=== PATIENT | female | born 1970 | race African-American/Black ===

== ENCOUNTER 2020-12-02 02:09 | Inpatient (IN) | payer MEDICARE, OTHER ==
[~2020-12-02] VITALS: Ht 160 cm; Wt 39.5 kg
--- NOTE | 2020-12-02 02:16 | NUR ---
PT AAOX4. BIBRA FROM HER HOME. 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 PT PLACED IN BED 11 ON MONITOR AND PULSE OX. ER MD AT BEDSIDE FOR EVAL. AWAITING ORDERS.
[2020-12-02] MEDS ORDERED: ONDANSETRON HCL/PF 4 MG/2 ML VIAL ONE (02:22)
[2020-12-02] MEDS ORDERED: MORPHINE SULFATE INJ 4 MG/ML DISP.SYRIN ONE (02:22)
[2020-12-02] MEDS ORDERED: MORPHINE SULFATE INJ 2 MG/ML DISP.SYRIN IV ONE (02:30)
[2020-12-02] MEDS ORDERED: ONDANSETRON HCL/PF 4 MG/2 ML VIAL IVP ONE (02:30)
[2020-12-02 02:46] LABS: BASOPHILS % (AUTO) 0.5 % (0.0-2.0); EOSINOPHILS % (AUTO) 0.1 % (0.0-6.0); HEMATOCRIT 39 % (33-45); HEMOGLOBIN 13.1 g/dL (11.5-14.8); LYMPHOCYTES # (AUTO) 1.2 /CMM (0.8-4.8); LYMPHOCYTES % (AUTO) 12.4 % (20.0-44.0); MEAN CORPUSCULAR HGB CONC 33 g/dl (31.0-36.0); MEAN CORPUSCULAR VOLUME 91 fL (82-100); MONOCYTES # (AUTO) 0.3 /CMM (0.1-1.30); MONOCYTES % (AUTO) 3.7 % (2.0-12.0); NEUTROPHILS # (AUTO) 7.8 /CMM (1.8-8.9); NEUTROPHILS % (AUTO) 83.3 % (43.0-81.0); PLATELET COUNT (AUTO) 193 /CMM (150-450); RED BLOOD CELL COUNT(AUTO) 4.34 MIL/uL (4.0-5.2); WHITE BLOOD COUNT (AUTO) 9.4 K/uL (4.3-11.0)
--- NOTE | 2020-12-02 02:54 | NUR ---
BROUGHT TO CT
[2020-12-02 03:48] LABS: BILIRUBIN,DIRECT 0.1 mg/dL (0.0-0.2); BILIRUBIN,TOTAL 0.4 mg/dL (0.2-1.0); CALCIUM, SERUM 9.1 mg/dL (8.5-10.1)
--- NOTE | 2020-12-02 03:49 | NUR ---
CR 7.5 ER AWARE
[2020-12-02 03:50] LABS: POTASSIUM 5.2 mmol/L (3.5-5.1)
[2020-12-02 03:51] LABS: CREATININE 7.5 mg/dL (0.6-1.3)
[2020-12-02] MEDS ORDERED: HYDROMORPHONE 1 MG/1 ML DISP.SYRIN IV ONE (04:00)
[2020-12-02] MEDS ORDERED: HYDROMORPHONE 1 MG/1 ML DISP.SYRIN ONE (04:08)
--- NOTE | 2020-12-02 04:40 | NUR ---
TAWANDAID SWABBED,SENT TO LAB.
--- NOTE | 2020-12-02 04:40 | NUR ---
PT DENIES PAIN. VITALS STABLE.
[2020-12-02] MEDS ORDERED: ONDANSETRON HCL/PF 4 MG/2 ML VIAL IVP PRN (06:00)
[2020-12-02] MEDS ORDERED: MAGNESIUM HYDROXIDE 30 ML UDC PO PRN (06:00)
[2020-12-02] MEDS ORDERED: HYDROMORPHONE 1 MG/1 ML DISP.SYRIN IV PRN (06:00)
[2020-12-02] MEDS ORDERED: Z GUARD REMEDY 2 OZ OINT TP PRN (06:00)
[2020-12-02] MEDS ORDERED: ACETAMINOPHEN 325 MG TABLET PO PRN (06:00)
[2020-12-02] MEDS ORDERED: ZOLPIDEM TARTRATE 5 MG TABLET PO PRN (06:00)
--- NOTE | 2020-12-02 06:51 | NUR ---
MS 320-2
--- NOTE | 2020-12-02 07:20 | NUR ---
REPORT GIVEN TO KEILA PEÑA FOR [facility]
[2020-12-02 08:00] VITALS: BP 123/78
--- NOTE | 2020-12-02 08:02 | NUR ---
MS RN ADMITTING NOTES ADMITTED PATIENT TO UNIT VIA GURNEY AT 0730 ACCOMPANIED BY Verónica GRAYSON. PT IS A/0 X4. ABLE TO MAKE NEEDS KNOWN, VERBALIZED THAT ABDOMINAL PAIN IS TOLERABLE AT THIS TIME. ORIENTED TO STAFF AND UNIT. PT ON SUPPLEMENTAL 02 VIA N/C AT 2LPM, TOLERATING WELL, BREATHING EVEN AND UNLABORED. PT WITH AV FISTULA ON KATI WITH + BRUIT/SHRILL NOTED. IV ACCESS PRESENT ON LIBRADO G#20 INTACT, PATENT AND FLUSHES WELL. SKIN IS INTACT, LUNGS CLEAR ON AUSCULTATION. ABDOMEN SOFT, NON-DISTENDED WITH POSITIVE BOWEL SOUNDS ON FOUR QUADRANTS. SAFETY MEASURES INITIATED: BED PLACED IN LOWEST LOCKED POSITION, B/L UPPER SR UP AND CALL LIGHT WITHIN EASY REACH OF PT. WILL CONTINUE TO MONITOR PT ACCORDINGLY.
[2020-12-02] MEDS ORDERED: AMLO-213 PO (08:47)
[2020-12-02] MEDS ORDERED: FOLI0.8C PO (08:47)
[2020-12-02] MEDS ORDERED: CYPR4TAB44 PO (08:47)
[2020-12-02] MEDS ORDERED: CALC667C6 PO (08:47)
--- NOTE | 2020-12-02 14:00 | NUR ---
RN NOTES PT C/O PAIN ON HER LEFT SIDE OF BACK, 9/10 SCALE. PRN DILAUDID 1MG/ML IVP ADMINISTERED AT 1357. WILL CONTINUE TO MONITOR AND REASSESS PT.
[2020-12-02 16:00] VITALS: BP 146/91
--- NOTE | 2020-12-02 18:23 | NUR ---
MS RN NOTE PT SEEN BY AND EVALUATED BY DR. GARZA WITH ORDER TO CHANGE DIET FROM CLEAR LIQUIDS TO RENAL STANDARD, REGULAR CONSISTENCY. WILL CARRY OUT ORDER.
[2020-12-02] MEDS: AMLODIPINE BESYLATE 10 MG TABLET PO SCH (18:26)
[2020-12-02] MEDS ORDERED: CYPROHEPTADINE HCL 4 MG TABLET PO SCH (18:30)
[2020-12-02] MEDS: HYDROCODONE/APAP 5/325MG TABLET PO PRN (18:34)
--- NOTE | 2020-12-02 18:38 | NUR ---
RN NOTES RECEIVED CALL FROM STARLA BYRNE TO ASKED PT IF SHE BROUGHT HER HOME MEDICATION PERIACTIN. PT STATED THAT SHE DIDN'T BRING IT AND IT'S OK IF SHE WILL NOT TAKE IT WHILE IN THE HOSPITAL. PHARMACIST CATY CALLED AND INFORMED. WILL CONTINUE TO MONITOR.
--- NOTE | 2020-12-02 18:43 | NUR ---
MS RN CLOSING PT IN BED TALKING TO SOMEONE ON HER CELLPHONE. A/0 X4. ABLE TO VERBALIZED NEEDS. ON ROOM AIR, TOLERATING WELL, BREATHING EVEN AND UNLABORED. AV FISTULA ON KATI WITH + BRUIT/SHRILL NOTED. IV SL ON LIBRADO G#20 INTACT, PATENT AND FLUSHES WELL. ALL NEEDS AND CARE ATTENDED WELL. SAFETY MEASURES KEPT IN PLACE: BED IN LOWEST LOCKED POSITION, B/L UPPER SR UP AND CALL LIGHT WITHIN EASY REACH OF PT. WILL ENDORSED TO CUSTOMER BUSINESS MANAGER NURSE FOR [facility].
--- NOTE | 2020-12-02 19:30 | NUR ---
MS BRANDIN initial notes Received pt in bed awake and alert on her cellphone at this time talking to someone. Denies any pain or any discomfort at this time. No signs of any distress noted. kept her warm and comfortable at all times. Encourage her to use the call light if she needs the nurse or needs some helped. place call light at reach.
[2020-12-02 20:00] VITALS: BP 151/85
--- NOTE | 2020-12-03 | NUR ---
MS BRANDIN NOTES PT CHECKED AND SEEN IN HER BED WITH LIGHTS ON SLEEPING COMFORTABLY IN BED WITHOUT ANY DISTRESS NOTED, KEPT HER WARM AND COMFORTABLE AT ALL TIMES. PLACE CALL LIGHT AT REACH.
[2020-12-03 04:00] VITALS: BP 123/61
[2020-12-03] MEDS: HYDROCODONE/APAP 5/325MG TABLET PO PRN ×4 (04:27→22:33)
--- NOTE | 2020-12-03 04:28 | NUR ---
ms robbie notes c/o lower back pain ,03/03 , norco tablet given as ordered. will continue monitoring.
--- NOTE | 2020-12-03 05:37 | NUR ---
ms robbie notes pt woke up when computer lab para professional try to do blood draw. pt refused to have her blood draw done even we explained to her why we need it. she states that she's tired of poking her to do blood draw and she request to have her blood draw to be do when dialysis nurse come today and withdraw it from my AV fistula.
--- NOTE | 2020-12-03 06:53 | NUR ---
mslvn closing notes pt resting at this time without any distress noted. pain subside from the pain medication given . stable throughout the night and slept well. kept her warm and comfortable at all times. bed in low and lock in position with side rails x2 up and place call light at reach. will endorse to am nurse for continuity of care.
--- NOTE | 2020-12-03 07:39 | NUR ---
MS RN OPENING NOTE PT RECEIVED IN BED, RESTING COMFORTABLY WITH NO C/O PAIN AT THIS TIME. PT IS A/O X 4, VERBAL AND ABLE TO MAKE NEEDS KNOWN. PT IS ON ROOM AIR WITH NO S/SX OF RESPIRATORY DISTRESS OR SOB NOTED. PT IS AMBULATORY WITH STEADY GAIT. PT HAS AN IV ACCESS IN THE RIGHT UPPER ARM G#20, PATENT, INTACT AND FLUSHING WELL WITH NO S/SX OF INFECTION, INFLAMMATION OR INFILTRATION. PT HAS A LEFT UPPER ARM AV FISTULA, POSITIVE FOR BRUIT AND THRILL. SAFETY MEASURES IN PLACE: BED IN LOWEST POSITION AND LOCKED WITH BOTH UPPER SIDE RAILS UP X 2. CALL LIGHT PLACED WITHIN REACH. WILL CONTINUE TO MONITOR.
[2020-12-03 08:28] VITALS: BP 123/88
[2020-12-03] MEDS: AMLODIPINE BESYLATE 10 MG TABLET PO SCH (08:35)
[2020-12-03] MEDS ORDERED: FOLIC ACID 1 MG TABLET PO SCH (09:00)
--- NOTE | 2020-12-03 09:54 | NUR ---
MS RN NOTE PT C/O SHARP PAIN IN LOWER ABDOMEN RATED 7/10. ADMINISTERED NORCO 5-325 1 TAB PO Q4H PRN FOR PAIN PER PT'S REQUEST. WILL CONTINUE TO MONITOR.
[2020-12-03 15:49] VITALS: BP 119/71
--- NOTE | 2020-12-03 18:46 | NUR ---
MS RN CLOSING NOTE PT REMAINS IN BED, RESTING COMFORTABLY WITH NO C/O PAIN AT THIS TIME. PT IS A/O X 4, VERBAL AND ABLE TO MAKE NEEDS KNOWN. PT IS ON ROOM AIR WITH NO S/SX OF RESPIRATORY DISTRESS OR SOB NOTED. PT IS AMBULATORY WITH STEADY GAIT. PT HAS AN IV ACCESS IN THE RIGHT UPPER ARM G#20, PATENT, INTACT AND FLUSHING WELL WITH NO S/SX OF INFECTION, INFLAMMATION OR INFILTRATION. PT HAS A LEFT UPPER ARM AV FISTULA, POSITIVE FOR BRUIT AND THRILL. PT CURRENTLY UNDERGOING HEMODIALYSIS VIA LEFT UPPER ARM AV FISTULA, TOLERATING WELL. SAFETY MEASURES MAINTAINED: BED IN LOWEST, LOCKED POSITION WITH BOTH UPPER SIDE RAILS UP X 2. CALL LIGHT PLACED WITHIN REACH. PT CLEARED TO BE DISCHARGED TONIGHT AFTER DIALYSIS. PT AND CHARGE NURSE AWARE. WILL ENDORSE TO MEDIA PRODUCTION MANAGER NURSE.
[2020-12-03] MEDS ORDERED: CALCIUM ACETATE 667 MG TABLET PO SCH (19:00)
--- NOTE | 2020-12-03 19:30 | NUR ---
MS/RN OPENING NOTES RECEIVED PATINE IN BED ALERT AND ORIENTED X 4. PATIENT IS CURRENT RECEIVING HD. PATIENT BREATHING IS EVEN AND UNLABORED. NO SIGNS OF SOB OR RESPIRATORY DISTRESS NOTED. PATIENT STATES NO PAIN AT THIS TIME. SAFETY MEASURES ARE IN PLACE, BED IS LOCKED AND PLACED IN THE LOW POSITION, SIDE RAILS UP X 2, CALL LIGHT IS WITHIN REACH. PATIENT FOR DC S/P HD. WILL CONTINUE TO MONITOR THROUGH OUT SHIFT.
[2020-12-03 20:00] VITALS: BP 144/79
--- NOTE | 2020-12-03 20:30 | NUR ---
MS/RN NOTES PATIENT S/P HD 500 ML OUT. PATIENT VITAL SIGNS ARE WITHIN NORMAL LIMITS. PATIENT STATES BACK ACHE, STATED SHE WOULD NOT LIKE TYLENOL AT THIS TIME. PATIENT WAITING FOR [employer] [facility] TO TRANSPORT HOME.
--- NOTE | 2020-12-03 21:00 | NUR ---
MS/RN NOTES RECEIVED CALL FROM [employer], NO TRANSPORT AIDE AVAILABLE IN THE AREA, WILL CALL BACK ONCE TRANSPORT AIDE IS AVAILABLE.
--- NOTE | 2020-12-03 22:40 | NUR ---
MS/RN NOTES PATIENT STATED BACK PAIN. PATIENT GIVEN NORCO 5 PO. V/S ARE STABLE. WILL CONTINUE TO MONITOR.
--- NOTE | 2020-12-04 06:45 | NUR ---
MS/RN CLOSING NOTES PATIENT IN BED SLEEPING EASY TO AROUSE. PATIENT IS ALERT AND ORIENTED X 4. PATIENT BREATHING IS EVEN AND UNLABORED. NO SIGNS OF SOB OR RESPIRATORY DISTRESS NOTED. PATIENT TAXI UNABLE TO ARRIVE DURING SHIFT, PATIENT NOT ABLE TO GO HOME. ALL NEEDS HAVE BEEN MET DURING SHIFT. SAFETY MEASURES ARE IN PLACE, BED IS LOCKED AND PLACED IN THE LOW POSITION, SIDE RAILS UP X 2, CALL LIGHT IS WITHIN REACH. WILL ENDORSE CARE TO DAY SHIFT NURSE.
--- NOTE | 2020-12-04 08:10 | NUR ---
MS RN NOTES PATIENT IS DISCHARGED. AMBULATORY. ACCOMPANIED DOWNSTAIRS. PICKED UP BY [facility]. PT IS STABLE VS 129/75 LA 82 RR 16 T 98.7 DISCHARGE INSTRUCTIONS AND HEALTH TEACHINGS WERE GIVEN. VERBALIZED UNDERSTANDING. IV AND WRISTBAND WERE REMOVED.
== END 2020-12-04 08:10 | disposition home or self-care (01) | DRG 391 ==
LOC: ER 02:12 → MED 07:08
PROVIDERS: ADMIT Nurse Practitioner Acute Care; ATTEND Nurse Practitioner Acute Care
PROC: 5A1D70Z Performance of Urinary Filtration, Intermittent, Less than 6 Hours Per Day (ICD-10-PCS; principal; 2020-12-03)
DX: K29.70 Gastritis, unspecified, without bleeding (principal); N18.6 End stage renal disease; E43 Unspecified severe protein-calorie malnutrition; Q44.6 Cystic disease of liver; Q61.3 Polycystic kidney, unspecified; K86.2 Cyst of pancreas; R64 Cachexia; Z68.1 Body mass index [BMI] 19.9 or less, adult; E87.5 Hyperkalemia; K76.89 Other specified diseases of liver; Z99.2 Dependence on renal dialysis; Z20.822 Contact with and (suspected) exposure to COVID-19; F12.90 Cannabis use, unspecified, uncomplicated; Z72.0 Tobacco use; Z79.899 Other long term (current) drug therapy
CPT/HCPCS: 36415; 71045-TC; 76705-TC; 80048-TC; 80076-TC; 82962-TC; 83605-TC; 83690-TC; 85025-TC; 87081-TC; 90935-TC; C9803; G0378; J1170; J2270; J2405

== ENCOUNTER 2021-12-20 04:45 | Emergency (ER) | payer MEDICARE, OTHER ==
[~2021-12-20] VITALS: Ht 157.5 cm; Wt 56.7 kg
[~2021-12-20 04:45] MED LIST: AMLO-213 PO; CALC667C6 PO; CYPR4TAB44 PO; FOLI0.8C PO
--- NOTE | 2021-12-20 05:05 | NUR ---
BIBRA C/O SOB AND COUGH X THIS AM. PT ARRIVED ON NC 4LPM BREATHING EVEN AND UNLABORED. PT CHANGED INTO A GOWN AND PLACED ON MINITOR AND PULSE OX AND V/S STABLE.
--- NOTE | 2021-12-20 05:24 | NUR ---
20G IV LINE ESTABLISHED AT [facility]. BLOOD RAWN AND SENT TO LAB.
--- NOTE | 2021-12-20 05:26 | NUR ---
XRAY AT BEDSIDE
[2021-12-20 05:31] LABS: BASOPHILS # (AUTO) 0.1 K/uL (0.0-0.2); BASOPHILS % (AUTO) 0.7 % (0.0-2.0); HEMATOCRIT 31 % (33-45); HEMOGLOBIN 10.5 g/dL (11.5-14.8); LYMPHOCYTES # (AUTO) 1.5 K/uL (0.8-4.8); LYMPHOCYTES % (AUTO) 17.2 % (20.0-44.0); MEAN CORPUSCULAR HGB CONC 34 g/dl (31.0-36.0); MEAN CORPUSCULAR VOLUME 90 fL (82-100); MONOCYTES # (AUTO) 0.4 K/uL (0.1-1.30); MONOCYTES % (AUTO) 5.2 % (2.0-12.0); NEUTROPHILS # (AUTO) 6.5 K/uL (1.8-8.9); NEUTROPHILS % (AUTO) 75.9 % (43.0-81.0); PLATELET COUNT (AUTO) 185 K/uL (150-450); RED BLOOD CELL COUNT(AUTO) 3.46 MIL/uL (4.0-5.2); WHITE BLOOD COUNT (AUTO) 8.6 K/uL (4.3-11.0)
--- NOTE | 2021-12-20 06:18 | NUR ---
DR ALICEA AT BED SIDE
--- NOTE | 2021-12-20 06:52 | NUR ---
COVID SWAB COLLECTED AND SENT TO LAB
[2021-12-20 07:08] LABS: CARBON DIOXIDE 31 mmol/L (21-32); CHLORIDE 103 mmol/L (98-107); POTASSIUM 4.3 mmol/L (3.5-5.1); SODIUM SERUM 141 mmol/L (136-145); UREA NITROGEN, BLOOD 53 mg/dL (7-18)
[2021-12-20 07:26] LABS: GLUCOSE 93 mg/dL (74-106)
[2021-12-20] MEDS ORDERED: FUROSEMIDE 40 MG/4 ML VIAL IV ONE ×2 (10:00→21:00)
[2021-12-20] MEDS ORDERED: FUROSEMIDE 40 MG/4 ML VIAL ONE (10:01)
[2021-12-20] MEDS ORDERED: MORPHINE SULFATE INJ 2 MG/ML DISP.SYRIN ONE (10:36)
[2021-12-20] MEDS ORDERED: MORPHINE SULFATE INJ 2 MG/ML DISP.SYRIN IV ONE (11:00)
[2021-12-20] MEDS ORDERED: Z GUARD REMEDY 4 OZ OINT TP PRN (12:30)
[2021-12-20] MEDS ORDERED: ZOLPIDEM TARTRATE 5 MG TABLET PO PRN (12:30)
[2021-12-20] MEDS ORDERED: HYDROCODONE/APAP 5/325MG TABLET PO PRN (12:30)
[2021-12-20] MEDS ORDERED: ONDANSETRON HCL/PF 4 MG/2 ML VIAL IVP PRN (12:30)
[2021-12-20] MEDS ORDERED: ACETAMINOPHEN 325 MG TABLET PO PRN (12:30)
--- NOTE | 2021-12-20 12:44 | NUR ---
PT GOING TO [facility] NUMBER FOR REPORT [phone] ROOM NUMBER [id number] NURSE VIVIANA FAUST TRANSPORT WITH [facility]
--- NOTE | 2021-12-20 12:54 | NUR ---
CALLED [facility] SET UP BLS TRANSPORT TO [facility] ETA 1327
--- NOTE | 2021-12-20 13:38 | NUR ---
REPORT GIVEN TO VIVIANA PEÑA
[2021-12-20 13:39] VITALS: BP 122/87
--- NOTE | 2021-12-20 13:50 | NUR ---
PICKED UP BY TRANSPORT IN STABLE CONDITION
[2021-12-20] MEDS ORDERED: CYPROHEPTADINE HCL 4 MG TABLET PO SCH (17:00)
[2021-12-21] MEDS ORDERED: PANTOPRAZOLE 40 MG TABLET.DR PO SCH (07:30)
[2021-12-21] MEDS ORDERED: AMLODIPINE BESYLATE 10 MG TABLET PO SCH (09:00)
== END 2021-12-20 14:30 | disposition short-term general hospital (02) ==
LOC: ER 04:47
DX: E87.70 Fluid overload, unspecified (principal); N18.6 End stage renal disease; Z99.2 Dependence on renal dialysis; R51.9 Headache, unspecified; Z20.822 Contact with and (suspected) exposure to COVID-19; Q61.3 Polycystic kidney, unspecified; F17.200 Nicotine dependence, unspecified, uncomplicated
CPT/HCPCS: 36415; 71045; 80048; 83880; 84484; 85025; 87081; 87426; 93005; 93307; 96374; 96375; 99285; J1940; J2270; C9803